=== PATIENT | female | born 1985 | race Caucasian/White ===

== ENCOUNTER 2018-03-08 23:48 | Inpatient (IN) | payer MEDICAID ==
[2018-03-09] MEDS ORDERED: ONDANSETRON 4 MG INJ IV ×3 (02:30→17:00)
[2018-03-09] MEDS ORDERED: ACETAMINOPHEN 325 MG TAB PO (02:30)
[2018-03-09] MEDS: AMPICILLIN/SULB 3 GM/NS (PMX) 100 ML IVPB (03:44)
[2018-03-09] MEDS: DEXTROSE 5%-0.45% NACL 1,000 ML IV ×2 (05:14→06:38)
[2018-03-09] MEDS: morphine 4 MG/ML VIAL IV ×3 (05:19→19:32)
[2018-03-09] MEDS ORDERED: NACL 0.9% 3 ML SYG IV (06:30)
[2018-03-09] MEDS: ONDANSETRON 4 MG INJ IV (08:12)
[2018-03-09] MEDS: SOD CHLORIDE 0.9% 1,000 ML IV (17:07)
[2018-03-10] MEDS: SOD CHLORIDE 0.9% 1,000 ML IV ×3 (01:00→09:00)
[2018-03-10 05:44] LABS: ADD MAN DIFF? NO
[2018-03-10 05:46] LABS: WHITE BLOOD COUNT 6.3 10^3/ul (4.8-10.8)
[2018-03-10 05:46] LABS: BASOPHILS % 0.6 % (0.0-2.0); EOSINOPHILS # 0.3 10^3/ul (0.0-0.5); HEMATOCRIT 37.4 % (37.0-47.0); HEMOGLOBIN 12.2 g/dl (12.0-16.0); LYMPHOCYTES # 2.8 10^3/ul (0.8-2.9); LYMPHOCYTES % 44.3 % (15.0-51.0); MEAN CORPUSCULAR HEMOGLOBIN 29.8 pg (29.0-33.0); MEAN CORPUSCULAR HGB CONC 32.6 g/dl (32.0-37.0); MEAN CORPUSCULAR VOLUME 91.2 fl (82.0-101.0); MEAN PLATELET VOLUME 10.7 fl (7.4-10.4); MONOCYTE # 0.4 10^3/ul (0.3-0.9); NEUTROPHIL # 2.7 10^3/ul (1.6-7.5); NEUTROPHILS % 43.8 % (39.0-77.0); PLATELET COUNT 267 10^3/UL (140-415); RED CELL DISTRIBUTION WIDTH 13.2 % (11.5-14.5)
[2018-03-10 06:04] LABS: ALANINE AMINOTRANSFERASE 47 IU/L (13-69); ALBUMIN 3.5 g/dl (3.3-4.9); ALBUMIN/GLOBULIN RATIO 1.12; ALKALINE PHOSPHATASE 52 IU/L (42-121); ANION GAP 7 (5-13); ASPARTATE AMINO TRANSFERASE 23 IU/L (15-46); BILIRUBIN,INDIRECT 0.2 mg/dl (0-1.1); BILIRUBIN,TOTAL 0.2 mg/dl (0.2-1.3); BLOOD UREA NITROGEN 6 mg/dl (7-20); CALCIUM 8.3 mg/dl (8.4-10.2); CARBON DIOXIDE 26 mmol/L (21-31); CHLORIDE 105 mmol/L (97-110); CREATININE 0.62 mg/dl (0.44-1.00); Estimated GFR > 60 mL/min (>60); GLUCOSE 90 mg/dl (70-220); POTASSIUM 3.8 mmol/L (3.5-5.1); SODIUM 138 mmol/L (135-144); TOTAL PROTEIN 6.6 g/dl (6.1-8.1)
[2018-03-10 06:08] LABS: PHOSPHORUS 4.2 mg/dl (2.5-4.9)
[2018-03-10 06:08] LABS: CHOL/HDL RATIO 3.9 RATIO; CHOLESTEROL 150 mg/dl (100-200); HDL CHOLESTEROL 38 mg/dl (34-82); LDL CHOLESTEROL,CALCULATED 65 mg/dl; MAGNESIUM 2.1 mg/dl (1.7-2.5); TRIGLYCERIDES 234 mg/dl (0-149)
[2018-03-10] MEDS ORDERED: SUCCINYLCHOLINE CHLORIDE 100 MG/5 ML SYG IV (07:00)
[2018-03-10 07:22] LABS: LIPASE 24 U/L (23-300)
[2018-03-10] MEDS: morphine 4 MG/ML VIAL IV ×3 (10:40→20:36)
[2018-03-10] MEDS ORDERED: BUPIVACAINE 0.5%/EPI (SDV) 30 ML INJ ×2 (12:10→13:11)
[2018-03-10] MEDS ORDERED: LIDOCAINE 1% (MPF) 30 ML INJ ×2 (12:10→13:11)
[2018-03-10] MEDS ORDERED: ROCURONIUM 50 MG INJ (13:04)
[2018-03-10] MEDS ORDERED: PROPOFOL 20 ML (13:04)
[2018-03-10] MEDS ORDERED: LIDOCAINE 1% (MDV) 20 ML INJ (13:05)
[2018-03-10] MEDS ORDERED: MIDAZOLAM 1 MG/ML 2 ML INJ (13:05)
[2018-03-10] MEDS ORDERED: ROPIVACAINE 0.5 % 30 ML VIAL (13:10)
[2018-03-10] MEDS ORDERED: ONDANSETRON 4 MG INJ (13:27)
[2018-03-10] MEDS ORDERED: DEXAMETHASONE 4 MG/ML 5 ML INJ (13:27)
[2018-03-10] MEDS ORDERED: PHENYLephrine (100 MCG/ML) 5ML SYG (13:35)
[2018-03-10] MEDS ORDERED: NEOSTIGMINE 3 MG/3 ML SYRINGE (14:03)
[2018-03-10] MEDS ORDERED: GLYCOPYRROLATE 1 MG INJ (14:03)
[2018-03-10] MEDS ORDERED: ONDANSETRON 4 MG INJ IV ×2 (14:30)
[2018-03-10] MEDS ORDERED: FENTAnyl 50 MCG/ML VIAL IV (14:30)
[2018-03-10] MEDS ORDERED: EPHEDrine SULFATE 50 MG/5 ML SYG IV (14:30)
[2018-03-10] MEDS ORDERED: HYDROmorphONE 1 MG/5 ML IV SYRINGE IV ×4 (14:30→14:49)
[2018-03-10] MEDS ORDERED: ACETAMINOPHEN 325 MG TAB PO (14:30)
[2018-03-10] MEDS: D5-NS + KCL 20 MEQ 1,000 ML IV (16:07)
[2018-03-10] MEDS: HYDROmorphONE 0.5 MG/0.5 ML SYG IV ×2 (17:25→23:07)
[2018-03-10] MEDS: PIPER-TAZO 3.375 GM IV (PMX) 100 ML IVPB (17:25)
[2018-03-11] MEDS: PIPER-TAZO 3.375 GM IV (PMX) 100 ML IVPB ×3 (00:11→13:00)
[2018-03-11] MEDS: D5-NS + KCL 20 MEQ 1,000 ML IV ×3 (01:30→11:30)
[2018-03-11] MEDS: morphine 4 MG/ML VIAL IV (03:29)
[2018-03-11 05:18] LABS: ADD MAN DIFF? NO
[2018-03-11 05:24] LABS: BASOPHILS % 0.1 % (0.0-2.0); HEMATOCRIT 32.1 % (37.0-47.0); HEMOGLOBIN 10.7 g/dl (12.0-16.0); LYMPHOCYTES # 1.2 10^3/ul (0.8-2.9); LYMPHOCYTES % 8.3 % (15.0-51.0); MEAN CORPUSCULAR HEMOGLOBIN 30.3 pg (29.0-33.0); MEAN CORPUSCULAR HGB CONC 33.3 g/dl (32.0-37.0); MEAN CORPUSCULAR VOLUME 90.9 fl (82.0-101.0); MEAN PLATELET VOLUME 10.8 fl (7.4-10.4); MONOCYTE # 0.8 10^3/ul (0.3-0.9); MONOCYTES % 5.9 % (0.0-11.0); NEUTROPHIL # 11.9 10^3/ul (1.6-7.5); NEUTROPHILS % 85.3 % (39.0-77.0); PLATELET COUNT 305 10^3/UL (140-415); RED BLOOD COUNT 3.53 10^6/ul (4.20-5.40); RED CELL DISTRIBUTION WIDTH 13.1 % (11.5-14.5)
[2018-03-11 06:07] LABS: PHOSPHORUS 4.7 mg/dl (2.5-4.9)
[2018-03-11 06:07] LABS: MAGNESIUM 2.1 mg/dl (1.7-2.5)
[2018-03-11 06:09] LABS: ALANINE AMINOTRANSFERASE 59 IU/L (13-69); ALBUMIN 3.5 g/dl (3.3-4.9); ALKALINE PHOSPHATASE 47 IU/L (42-121); ANION GAP 13 (5-13); ASPARTATE AMINO TRANSFERASE 44 IU/L (15-46); BILIRUBIN,INDIRECT 0.1 mg/dl (0-1.1); BILIRUBIN,TOTAL 0.1 mg/dl (0.2-1.3); BLOOD UREA NITROGEN 8 mg/dl (7-20); CALCIUM 8.5 mg/dl (8.4-10.2); CARBON DIOXIDE 26 mmol/L (21-31); CHLORIDE 103 mmol/L (97-110); CREATININE 0.74 mg/dl (0.44-1.00); Estimated GFR > 60 mL/min (>60); GLUCOSE 157 mg/dl (70-220); POTASSIUM 4.8 mmol/L (3.5-5.1); SODIUM 142 mmol/L (135-144); TOTAL PROTEIN 6.4 g/dl (6.1-8.1)
[2018-03-11] MEDS: HYDROmorphONE 0.5 MG/0.5 ML SYG IV ×2 (06:19→16:16)
[2018-03-11] MEDS: ENOXAPARIN 40 MG/0.4 ML SYG SC (06:38)
[2018-03-11] MEDS: HYDROCODONE/APAP (5/325) TAB PO (13:10)
[2018-03-11] MEDS: IBUPROFEN 600 MG TAB PO (14:24)
== END 2018-03-11 18:05 | disposition home or self-care (01) | DRG 419 ==
LOC: E/R 03-09 01:44 → 2NE 03-09 02:30 → E/R 03-09 04:06 → 2NE 03-09 02:30
PROVIDERS: Internal Medicine
PROC: 0FT44ZZ Resection of Gallbladder, Percutaneous Endoscopic Approach (ICD-10-PCS; principal; 2018-03-10 13:00)
DX: K80.00 Calculus of gallbladder with acute cholecystitis without obstruction (principal); E78.1 Pure hyperglyceridemia
CPT/HCPCS: 36415; 76705; 78226; 80053; 80061; 81025; 83690; 83735; 84100; 85025; 85610; 85730; 88304; 96374; 96375; 99285-25